=== PATIENT | female | born 1960 | race Caucasian/White ===

== ENCOUNTER → 2021-03-31 | Outpatient (CLI) | payer OTHER ==
[2021-03-31 12:29] LABS: BASO # 0.1 x10^3/uL (0.0-0.2); BASO % 1 % (0-3); EOS # 0.2 x10^3/uL (0.0-0.7); EOS % 3 % (0-3); HEMATOCRIT 43.8 % (36.0-47.0); HEMOGLOBIN 14.6 g/dL (12.0-15.5); LYMPH # 1.9 x10^3/uL (1.0-4.8); LYMPH % 28 % (24-48); MEAN CORPUSCULAR HEMOGLOBIN 31 pg (25-35); MEAN CORPUSCULAR HGB CONC 33 g/dL (31-37); MEAN CORPUSCULAR VOLUME 92 fL (79-100); MONO # 0.4 x10^3/uL (0.0-1.1); MONO % 6 % (0-9); NEUT # 4.3 x10^3uL (1.8-7.7); NEUT % 62 % (31-73); PLATELET COUNT 321 x10^3/uL (140-400); RED BLOOD COUNT 4.75 x10^6/uL (3.50-5.40); RED CELL DISTRIBUTION WIDTH 15.1 % (11.5-14.5); WHITE BLOOD COUNT 6.9 x10^3/uL (4.0-11.0)
--- NOTE | 2021-03-31 12:38 | RAD ---
EXAM: Bilateral digital screening mammogram. HISTORY: 60-year-old female presents for screening mammography. TECHNIQUE: Full-field digital craniocaudal and mediolateral oblique images of both breasts are obtain ed for evaluation. Computer aided detection was applied. COMPARISON: 12/24/2017 BREAST PARENCHYMAL DENSITY: Level C - Heterogeneously dense. FINDINGS: There is no new suspicious mass, microcalcification or region of architectural distortion. IMPRESSION: BI-RADS Category 2: Benign finding(s). RECOMMENDATION: Annual mammography is recommended. If your mammogram demonstrates that you have dense breast tissue, which could hide abnormalities, and if you have other risk factors for breast cancer that have been identified, you might benefit from s upplemental screening tests that may be suggested by your ordering physician. Dense breast tissue, i n and of itself, is a relatively common condition. This information is not provided to cause undue c oncern, but rather to raise your awareness and to promote discussion with your physician regarding th e presence of other risk factors, in addition to dense breast tissue. A report of your mammography re sults will be sent to you and your physician. You should contact your physician if you have any ques tions or concerns regarding this report. Mammography is a sensitive method for finding small breast cancers, but it does not detect them all a nd is not a substitute for careful clinical examination. A negative mammogram does not negate a clin ically suspicious finding and should not result in delay in biopsying a clinically suspicious abnorma lity. PQRS compliance statement - Patient information was entered into a reminder system with a target due date for the next mammogram. "Our facility is accredited by the [employer] Mammography [employer]." Electronically signed by: Sandra Calloway MD (03/31/2021 12:36 PM) [id number]
[2021-03-31 12:48] LABS: ALBUMIN/GLOBULIN RATIO 1.3 (1.0-1.7); CALCIUM 9.6 mg/dL (8.5-10.1); CREATININE 0.9 mg/dL (0.6-1.0); GFR 63.9; POTASSIUM 4.7 mmol/L (3.5-5.1); TOTAL BILIRUBIN 0.5 mg/dL (0.2-1.0); TOTAL PROTEIN 7.1 g/dL (6.4-8.2)
[2021-03-31 12:49] LABS: BILIRUBIN,URINE NEG (NEG); CLARITY,URINE CLEAR; COLOR,URINE STRAW; GLUCOSE,URINE NEG (NEG)
[2021-03-31 12:50] LABS: NITRITE,URINE NEG (NEG); RBC,URINE RARE /HPF (0-2); UROBILINOGEN,URINE 0.2 mg/dL (0.2 mg/dL); WBC,URINE RARE /HPF (0-4)
[2021-03-31 12:51] LABS: BACTERIA,URINE FEW /HPF (0-FEW); SQUAMOUS EPITHELIAL CELL,UR FEW /LPF
[2021-03-31 13:53] LABS: FREE T4 0.88 ng/dL (0.76-1.46); THYROID STIM HORMONE (TSH) 1.275 uIU/mL (0.358-3.740)
== END ==
LOC: MAMMO 10:44
PROVIDERS: ATTEND Family Medicine
DX: Z12.31 Encounter for screening mammogram for malignant neoplasm of breast (principal); I10 Essential (primary) hypertension; F32.9 Major depressive disorder, single episode, unspecified; R42 Dizziness and giddiness; Z80.3 Family history of malignant neoplasm of breast
CPT/HCPCS: 36415; 77067; 80053; 80061; 81001; 84439; 84443; 85025; 87086

== ENCOUNTER 2022-02-21 10:47 | Emergency (ER) | payer OTHER ==
[~2022-02-21] VITALS: Ht 157.5 cm; Wt 86.0 kg
--- NOTE | 2022-02-21 11:10 | PHYS DOC ---
Past History Past Surgical History: General Adult EDM: Chief Complaint: ABDOMINAL PAIN HPI: HPI: 61-year-old female presents with left lower quadrant abdominal pain. The patient was awoken from her sleep with left lower quadrant abdominal pain. She was feeling fine yesterday. She states the pain is moderate to severe and cramping in nature. She has not had pain like this before. She has no significant abdominal history. No abdominal surgical history. She has had vomiting but no diarrhea. She does not believe she has had a fever. Review of Systems: Review of Systems: Constitutional: Denies fever or chills Eyes: Denies change in visual acuity HENT: Denies nasal congestion or sore throat Respiratory: Denies cough or shortness of breath Cardiovascular: Denies chest pain or edema GI: Epigastric and left lower quadrant abdominal pain, nausea, vomiting. : Denies dysuria Musculoskeletal: Denies back pain or joint pain Integument: Denies rash Neurologic: Denies headache, focal weakness or sensory changes Endocrine: Denies polyuria or polydipsia Lymphatic: Denies swollen glands Psychiatric: Denies depression or anxiety Current Medications: Current Meds: Current Medications Medications (Trade) Dose Ordered Sig/Peggy Start Time Stop Time Status Last Admin Dose Admin Ondansetron HCl (Zofran) 4 mg 1X ONCE 02/21/22 11:00 02/21/22 11:01 UNV Sodium Chloride 1,000 ml @ 1,000 mls/hr 1X ONCE 02/21/22 11:00 02/21/22 11:59 UNV Physical Exam: PE: Constitutional: Well developed, well nourished, mild acute distress, non-toxic appearance. [] HENT: Normocephalic, atraumatic, bilateral external ears normal, oropharynx moist, no oral exudates, nose normal. [] Eyes: PERRLA, EOMI, conjunctiva normal, no discharge. [] Neck: Normal range of motion, no tenderness, supple, no stridor. [] Cardiovascular: Heart rate regular rhythm, no murmur [] Lungs & Thorax: Bilateral breath sounds clear to auscultation [] Abdomen: Bowel sounds normal, epigastric and left lower quadrant tenderness with guarding, no masses, no pulsatile masses. [] Skin: Warm, dry, no erythema, no rash. [] Back: No tenderness, no CVA tenderness. [] Extremities: No tenderness, no cyanosis, no clubbing, ROM intact, no edema. [] Neurologic: Alert and oriented X 3, normal motor function, normal sensory function, no focal deficits noted. [] Psychologic: Affect normal, judgement normal, mood normal. [] Current Patient Data: Vital Signs: Vital Signs Date Time Temp Pulse Resp B/P (MAP) Pulse Ox O2 Delivery O2 Flow Rate FiO2 02/21/22 10:55 97.7 104 38 148/108 (121) 95 Room Air EKG: EKG: [] Radiology/Procedures: Radiology/Procedures: [] Impressions: INDICATION: Reason: LLQ pain / Spl. Instructions: / History: COMPARISON: None. TECHNIQUE: Axial CT images were obtained through the abdomen and pelvis without intravenous contrast. One or more of the following individualized dose reduction techniques were utilized for this examination: 1. Automated exposure control; 2. Adjustment of the mA and/or kV according to patient size; 3. Use of iterative reconstruction technique. FINDINGS: Patchy opacity right greater than left lung base dependently which could be from atelectasis or infiltrate. Vascular: No abdominal aortic aneurysm. Hepatobiliary: Liver is low-density. Nonspecific but can be seen with fatty infiltration. Liver also appears enlarged. Gallbladder wall thickening with adjacent edema in the fat as well as some high density material within which could be gallstones. Pancreas: Large amount of edema adjacent to the pancreas and the adjacent duodenum with free fluid. Spleen: Spleen unremarkable. Renal/Bladder: At the left kidney there is a high density focus within which could be a calcification or from causes such as a proteinaceous cyst. No sig nificant hydronephrosis. Urinary bladder is partially distended. Mild thickening adrenal glands. Gastrointestinal: Colonic diverticulosis. Fat-containing umbilical hernia. The appendix courses through one of the regions of fluid and edema. Fluid and edema seen elsewhere within the abdomen as well though therefore most likely secondary to the process centered around the pancreas and duodenum. Degenerative changes of the spine. IMPRESSION: * Large amount of edema is seen centered around the pancreas and duodenum with free fluid seen tracking throughout the abdomen and pelvis. This could be secondary to pancreatitis as well as duodenitis or duodenal ulcer. It could be a combination of these findings as well given the severity of findings. * Gallstones are identified with wall thickening of the gallbladder and adjacent edema. Correlate with symptoms since causes such as cholecystitis is within the differential for this finding. * Colonic diverticulosis. * Atelectasis or infiltrate at lung bases Electronically signed by: Rochelle Urrutia MD (02/21/2022 12:00 PM) DESKTOP- [id number] DICTATED AND SIGNED BY: ROCHELLE URRUTIA MD DATE: 02/21/22 1148 CC: ZAFAR DELUCA DO; MERARI LANCE ~ Heart Score: C/O Chest Pain: N/A Risk Factors: Risk Factors: DM, Current or recent (<one month) smoker, HTN, HLP, family history of CAD, obesity. Risk Scores: Score 0 - 3: 2.5% MACE over next 6 weeks - Discharge Home Score 4 - 6: 20.3% MACE over next 6 weeks - Admit for Clinical Observation Score 7 - 10: 72.7% MACE over next 6 weeks - Early Invasive Strategies Course & Med Decision Making: Course & Med Decision Making Pertinent Labs and Imaging studies reviewed. (See chart for details) The patient has an elevated white count with a left shift. Liver enzymes are el evated. CT of the abdomen pelvis shows large amount of edema around the pancreas and duodenum with free fluid throughout the abdomen and pelvis. This could be pancreatitis, duodenitis, duodenal ulcer, or combination of all of these. See official read for more details. The patient's lipase is over 9000. I have ordered blood cultures, lactic acid, and additional liter of normal saline. I discussed with the patient that she will need to be transferred to another hospital. She would prefer the [facility] system. I ordered Zosyn antibiotic and additional pain medication as needed. I spoke with Dr. Mcgee the transfer physician and he has accepted the patient for transfer. They are coordinating a bed at this time. Patient is in agreement with transfer. She will go by ambulance. [] Dragon Disclaimer: Dragon Disclaimer: This electronic medical record was generated, in whole or in part, using a voice recognition dictation system. Departure Departure: Impression: Primary Impression: Pancreatitis Additional Impression: Gallstones Disposition: 02 SHORT TERM HOSPITAL Condition: STABLE Referrals: MERARI LANCE (PCP) ZAFAR DELUCA DO February 21, 2022 11:10
[2022-02-21] MEDS ORDERED: MORPHINE SULFATE 4 MG/ML DISP.SYRIN. ONE (11:13)
[2022-02-21] MEDS ORDERED: ONDANSETRON PF 4 MG/2 ML VIAL. ONE (11:13)
[2022-02-21] MEDS: ONDANSETRON PF 4 MG/2 ML VIAL. IVP ONE (11:21)
[2022-02-21] MEDS: IV NORMAL SALINE 1,000ML 1,000 ML IV ONE ×2 (11:21→12:44)
[2022-02-21] MEDS: MORPHINE SULFATE 4 MG/ML DISP.SYRIN. IV ONE ×4 (11:22→15:29)
[2022-02-21 11:33] LABS: BASO # 0.1 x10^3/uL (0.0-0.2); BASO % 0 % (0-3); EOS % 0 % (0-3); HEMATOCRIT 52.1 % (36.0-47.0); HEMOGLOBIN 17.2 g/dL (12.0-15.5); LYMPH # 1.1 x10^3/uL (1.0-4.8); LYMPH % 6 % (24-48); MEAN CORPUSCULAR HEMOGLOBIN 31 pg (25-35); MEAN CORPUSCULAR HGB CONC 33 g/dL (31-37); MEAN CORPUSCULAR VOLUME 94 fL (79-100); MONO # 0.9 x10^3/uL (0.0-1.1); MONO % 5 % (0-9); NEUT # 17.3 x10^3uL (1.8-7.7); NEUT % 90 % (31-73); PLATELET COUNT 356 x10^3/uL (140-400); RED BLOOD COUNT 5.53 x10^6/uL (3.50-5.40); RED CELL DISTRIBUTION WIDTH 14.7 % (11.5-14.5); WHITE BLOOD COUNT 19.3 x10^3/uL (4.0-11.0)
[2022-02-21 11:48] LABS: CALCIUM 8.9 mg/dL (8.5-10.1); GFR 56.4; POTASSIUM 4.1 mmol/L (3.5-5.1)
[2022-02-21 11:55] LABS: ALBUMIN 3.9 g/dL (3.4-5.0); ALBUMIN/GLOBULIN RATIO 1.1 (1.0-1.7); TOTAL BILIRUBIN 0.7 mg/dL (0.2-1.0); TOTAL PROTEIN 7.6 g/dL (6.4-8.2)
--- NOTE | 2022-02-21 12:02 | RAD ---
INDICATION: Reason: LLQ pain / Spl. Instructions: / History: COMPARISON: None. TECHNIQUE: Axial CT images were obtained through the abdomen and pelvis without intravenous contrast. One or more of the following individualized dose reduction techniques were utilized for this examinat ion: 1. Automated exposure control; 2. Adjustment of the mA and/or kV according to patient size; 3 . Use of iterative reconstruction technique. FINDINGS: Patchy opacity right greater than left lung base dependently which could be from atelectasis or infil trate. Vascular: No abdominal aortic aneurysm. Hepatobiliary: Liver is low-density. Nonspecific but can be seen with fatty infiltration. Liver also appears enlarged. Gallbladder wall thickening with adjacent edema in the fat as well as some high den sity material within which could be gallstones. Pancreas: Large amount of edema adjacent to the pancreas and the adjacent duodenum with free fluid. Spleen: Spleen unremarkable. Renal/Bladder: At the left kidney there is a high density focus within which could be a calcification or from causes such as a proteinaceous cyst. No significant hydronephrosis. Urinary bladder is parti ally distended. Mild thickening adrenal glands. Gastrointestinal: Colonic diverticulosis. Fat-containing umbilical hernia. The appendix courses throu gh one of the regions of fluid and edema. Fluid and edema seen elsewhere within the abdomen as well t vicky therefore most likely secondary to the process centered around the pancreas and duodenum. Degenerative changes of the spine. IMPRESSION: * Large amount of edema is seen centered around the pancreas and duodenum with free fluid seen trac mariluz throughout the abdomen and pelvis. This could be secondary to pancreatitis as well as duodenitis or duodenal ulcer. It could be a combination of these findings as well given the severity of finding s. * Gallstones are identified with wall thickening of the gallbladder and adjacent edema. Correlate wi th symptoms since causes such as cholecystitis is within the differential for this finding. * Colonic diverticulosis. * Atelectasis or infiltrate at lung bases Electronically signed by: Panfilo Fonseca MD (02/21/2022 12:00 PM) [id number]
[2022-02-21] MEDS ORDERED: IV NORMAL SALINE 50ML 50 ML ONE (12:28)
[2022-02-21] MEDS ORDERED: PIPERACILLIN/TAZOBACTAM 3.375 GM VIAL IV ONE (12:29)
[2022-02-21] MEDS: PIPERACILLIN/TAZOBACTAM 3.375 GM in IV NORMAL SALINE 50ML 50 ML IV ONE (12:45)
[2022-02-21 12:48] LABS: % BANDS 8 % (0-9); % LYMPHS 4 % (24-48); % MONOS 1 % (0-10); % SEGS 87 % (35-66); PLT ESTIMATE ADEQUATE (ADEQUATE)
[2022-02-21 14:27] VITALS: BP 184/83
--- NOTE | 2022-02-21 14:50 | RAD ---
Exam Date: 02/21/2022 1:54 PM US ABDOMEN OR LOWER BACK LIMITED Indication: Reason: gallstones, pancreatitis / Spl. Instructions: / History: . TECHNIQUE: Multiple longitudinal and transverse sonographic images of the right upper quadrant and g allbladder are submitted for interpretation. COMPARISON: CT from earlier the same day FINDINGS: The liver is normal in size but diffusely increased in echogenicity and heterogeneous in echotexture. The portal vein is patent with hepatopetal flow. No focal intrahepatic abnormality is seen. The gallbladder is filled with gallstones. Gallbladder wall thickening is seen up to 4 mm. No appre ciable pericholecystic fluid. There is no biliary ductal dilatation, with the common bile duct measur ing 6 mm. The visualized abdominal aorta, inferior vena cava and pancreas are within normal limits. There is n o upper abdominal ascites. The right kidney is normal in appearance, measuring 10.0 cm. IMPRESSION: Diffusely increased hepatic echogenicity and heterogeneous echotexture, consistent with underlying fa tty infiltration and/or hepatocellular disease. This limits sonographic sensitivity. Gallstones with gallbladder wall thickening raises suspicion for possible acute cholecystitis. The s onographer was unable to elicit a positive sonographic Garnett sign. Correlate clinically. If clinic ally indicated, further evaluation with nuclear medicine hepatobiliary scan can be performed. Electronically signed by: Allan Garrison MD (02/21/2022 2:47 PM) [id number]
== END 2022-02-21 15:30 | disposition short-term general hospital (02) ==
LOC: ER 10:47
DX: K85.90 Acute pancreatitis without necrosis or infection, unspecified (principal); K80.20 Calculus of gallbladder without cholecystitis without obstruction; Z20.822 Contact with and (suspected) exposure to COVID-19; Z98.890 Other specified postprocedural states
CPT/HCPCS: 36415; 74176; 76705; 80053; 83690; 85007; 85025; 87040; 87426; 96361; 96365; 96375; 96376; 99285; C9803; J2270; J2405; J2543; J7030; U0003